=== PATIENT | female | born 1995 | race Hispanic/Latino ===

== ENCOUNTER 2022-05-25 11:06 | Emergency (ER) | payer OTHER ==
[~2022-05-25] VITALS: Ht 172.7 cm; Wt 107.0 kg
[~2022-05-25 11:06] MED LIST: PERCOCET 7.5-31 EACH PO
[2022-05-25] MEDS ORDERED: VITAFOL-OB+DHA1 EACH PO (11:34)
== END 2022-05-25 14:43 | disposition home or self-care (01) ==
LOC: ED 11:06
DX: O20.0 Threatened abortion (principal); Z29.13 Encounter for prophylactic Rho(D) immune globulin; Z3A.09 9 weeks gestation of pregnancy; Z88.0 Allergy status to penicillin
CPT/HCPCS: 36415; 76801; 76817; 81001; 84702; 85025; 86850; 86900; 86901; 96372; 99284-25; J2790